=== PATIENT | male | born 1930 | race Caucasian/White ===

== ENCOUNTER → 2016-07-08 | Day surgery (SDC) | payer MEDICARE ==
[~2016-07-08] VITALS: Ht 177.8 cm; Wt 81.0 kg
[~2016-07-08] MED LIST: *morphine SULFATE 8 MG/ML PERIprocedure ONLY ONE; ACETAMINOPHEN 1000 MG/100 ML VIAL IV ONE; ARTIFICIAL TEARS OPTH OINT 3.5 APPLIC/3.5 GM TUBO ONE; ASPI81TA81; BUPIVACAINE HCL PF 0.25% 30 ML VIAL ONE; CARB25TA9 PO; CARBIDOPA/LEVODOPA 25 MG/100 MG TAB PO SCH; DEXTROSE 50% IN WATER 50 ML VIAL(D50) IV PUSH PRN; DO NOT ADM ANY ANTICOAGULANT DRUGS XX PRN; FAMOTIDINE 20 MG/2 ML VIAL ONE; FURO20TA PO; FUROSEMIDE 20 MG TAB PO SCH; GELFOAM SIZE 100 ONE; GENTAMICIN SULFATE 80 MG/2 ML VIAL ONE; GLUCAGON 1 MG/ML VIAL OTHER PRN; HYDR2TAB PO; HYDROmorphone HCL 2 MG TAB PO PRN; INSU100V3; INSULIN HUMAN REGULAR 1,000 UNITS/10 ML VIAL SQ PRN; INSULIN NovoLIN REGULAR SUPPLEMENTAL SCALE SQ SCH; LACTATED RINGER'S 1000 ML INJ 1,000 ML IV ONE; LACTATED RINGER'S 1000 ML IV SCH; LIDOCAINE 1%/EPINEPHrine 1:100,000 SOLN 20 ML VIAL ONE; LOSA100T PO; LOSARTAN 50 MG TAB PO SCH; MELO7.5T4 PO; METOPROLOL TARTRATE 25 MG TAB PO PRN; ONDANSETRON HCL 4 MG/2 ML VIAL IV PUSH ONE; PHENYLEPH/NS 1000 MCG/10 ML SYR IV ONE; PROPOFOL 200 MG/20 ML AMP IV ONE; ROSU10 PO; SODIUM CHLORID 0.9% 500 ML IV SCH; SPIR25TA PO; SPIRONOLACTONE 25 MG TAB PO SCH; SUGAMMADEX SODIUM 200 MG/2 ML VIAL IV PUSH ONE; THROMBIN (TOPICAL) 5,000 UNIT VIAL ONE; ceFAZolin 1,000 MG/NS 100 ML IV SCH; ceFAZolin INJ 1,000 MG VIAL IV ONE; fentaNYL CITRATE 250 MCG/5 ML AMP ONE
[2016-07-08 06:55] VITALS: BP 163/68; PULSE 87; RESP 20; TEMP 97.8; O2SAT 100
--- NOTE | 2016-07-08 11:15 | PD.OP ---
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 Left L2-3 decompressive semi-hemilaminectomy, medial facetectomy microtechnique 2. L2-3 discectomy, resection sequestered herniated nucleus pulposus- microtechnique Anesthesia: Gen. Surgeon: Israel Montana Fan Mail Editor(s): Sue Dick Operation and Findings: Procedure in detail: The patient was brought into the operating room and general endotracheal anesthesia induced without difficulty. Knee-high sequential compression devices were placed. Lines were established by Anesthesia The patient was placed in prone position on the concentric Bernardino table with the side bolsters and all extremities appropriately padded Appropriate timeout procedure was performed with all personal present and in agreement The lumbar region was shaved with clippers and sterilely prepped and draped. 1% Xylocaine with epinephrine was used for local infiltration over the incision site which was made just to the left of midline at the L2-3 level. The incision was carried sharply down to the lumbodorsal fascia which was incised just adjacent to the spinous processes. Bernardo elevator was used for subperiosteal elevation of paraspinous musculature and fascia away from the lamina and spinous process The deep self-retaining retractor was placed. The appropriate level was verified with intraoperative C-arm. The microscope was moved into place and used for the remainder of the procedure including the closure. The TPS drill with the 5 mm bone bur followed by the 3 mm Kerrison rongeur was used to remove the inferior aspect of the most cephalad lamina and a small amount of the superior aspect of the most caudal lamina along with a small amount of the medial facet sufficient to gain access to the lateral recess without significant nerve root or thecal sac retraction. There was significant hypertrophy of the medial left L2-3 facet as well as ligamentum flavum, causing significant compression on the dorsal thecal sac and exiting left L3 nerve root. This required additional bone removal and ligament removal as well as removal of the inferior medial facet to totally decompress the thecal sac and exiting nerve root, in addition to the exposure normally required for microdiscectomy. The ligamentum flavum was elevated away from the thecal sac and resected with the Kerrison rongeur which was also used to further remove ligamentum along the lateral recess. The exiting nerve root was traced down to the medial aspect of the inferior pedicle and traced back to the exit from the thecal sac. The thecal sac and exiting nerve root were then retracted gently medially revealing the underlying disc and annulus. The patient was noted to have a prominent subannular herniated nucleus pulposus which was significantly impinging on the overlying exiting nerve root and thecal sac. Extending from a central tear in the annulus, there is a large sequestered fragment extending posterior to the L2 vertebral body and causing significant thecal sac compression. The disc and annulus were incised with the 11 blade knife and discectomy performed with the pituitary biopsy forceps and the straight and angled curettes. The lumbar nerve hook was used to free up the sequestered fragment posterior to L2 vertebral body and this was removed with the micro-biopsy forceps in 2 large fragments. Any loose pieces of disc material in the intervertebral disc space were carefully removed. The neural structures appeared well decompressed at the end of the procedure. Bleeding was carefully controlled with bone wax for the bone bleeding and bipolar forceps. There is no significant bleeding time of closure. No cerebrospinal fluid leakage was encountered. The closure was performed with 0 Vicryl interrupted for the deep and superficial fascia, with 3-0 Vicryl interrupted for the subcutaneous closure, and 4-0 Vicryl running for the subcuticular closure. The dressing of sterile Mastisol, Steri-Strips, and Primapore dressing was applied. The patient was taken to recovery room in stable condition. All counts were correct at the end of the case. No specimen was sent to pathology. Estimated blood loss was 50 cc . Israel Montana MD Jul 08, 2016 11:15
--- NOTE | 2016-07-08 11:39 | RADRPT ---
EXAM DATE/TIME: 07/08/2016 08:49 [facility] COMPARISON: No previous studies available for comparison. INDICATIONS : L2-3 Laminectomy MEDICAL HISTORY : None. SURGICAL HISTORY : None. ENCOUNTER: Initial ACUITY: 1 day PAIN SCORE: Non-responsive. LOCATION: Bilateral L-spine. FINDINGS: Lateral matrix views in the OR demonstrate a posterior marker projecting toward a upper lumbar interv ertebral disc space. Definite lumbar sacral level localization L5 or sacrum is not identified however I suspect this is projected towards the L2-3 disc space CONCLUSION: Lateral marker projection as described Zach Boston MD on July 08, 2016 at 11:37 Board Certified Radiologist. This report was verified electronically.
[2016-07-08 13:38] VITALS: BP 120/62; PULSE 89; RESP 20; TEMP 97.5; O2SAT 100
== END | disposition home or self-care (01) ==
LOC: HSDC 05:43
PROVIDERS: ATTEND Neurological Surgery
DX: M51.16 Intervertebral disc disorders with radiculopathy, lumbar region (principal); M48.06 Spinal stenosis, lumbar region; I10 Essential (primary) hypertension; E78.5 Hyperlipidemia, unspecified; E11.9 Type 2 diabetes mellitus without complications; I25.10 Atherosclerotic heart disease of native coronary artery without angina pectoris; Z79.84 Long term (current) use of oral hypoglycemic drugs; Z95.1 Presence of aortocoronary bypass graft
CPT/HCPCS: 00630; 63030; 72020; 76000; 82948; 86850; 86900; 86901; J0131; J0690; J1580; J2270; J2370; J2405; J3010; J7120